=== PATIENT | male | born 1950 | race Caucasian/White ===

== ENCOUNTER 2016-09-02 07:05 | Day surgery (SDC) | payer MEDICARE, OTHER ==
[~2016-09-02] VITALS: Ht 185.4 cm; Wt 79.5 kg
[~2016-09-02 07:05] MED LIST: LACTATED RINGERS 1,000 ML IV SCH; SODIUM CHLORIDE FLUSH 3 ML SYR IV PRN
[2016-09-02 07:07] VITALS: BP 140/86
[2016-09-02] MEDS ORDERED: ALFENTANIL 500 MCG/ML (ALFENTA) 5 ML AMP IV ONE (07:52)
[2016-09-02] MEDS ORDERED: MIDAZOLAM 2 MG/2 ML (VERSED) VIAL ONE (07:52)
[2016-09-02] MEDS ORDERED: PROPOFOL 20 ML IV ONE (07:52)
[2016-09-02 09:08] VITALS: BP 121/76
[2016-09-02 09:34] VITALS: BP 140/87
== END 2016-09-02 09:38 | disposition home or self-care (01) ==
LOC: ASC 07:05
PROVIDERS: ATTEND Surgery
PROC: 0DBP8ZX Excision of Rectum, Via Natural or Artificial Opening Endoscopic, Diagnostic (ICD-10-PCS; principal; 2016-09-02)
PROC: 0DBN8ZX Excision of Sigmoid Colon, Via Natural or Artificial Opening Endoscopic, Diagnostic (ICD-10-PCS; 2016-09-02)
DX: Z12.11 Encounter for screening for malignant neoplasm of colon (principal); C20 Malignant neoplasm of rectum; D12.5 Benign neoplasm of sigmoid colon; K57.30 Diverticulosis of large intestine without perforation or abscess without bleeding; E66.9 Obesity, unspecified; Z68.37 Body mass index [BMI] 37.0-37.9, adult
CPT/HCPCS: 45385; 88305; J2250; J7120

== ENCOUNTER → 2016-09-29 | Outpatient (CLI) | payer MEDICARE, OTHER | LOC: LAB 08:57 | PROVIDERS: ATTEND Colon & Rectal Surgery | DX: Z85.048 Personal history of other malignant neoplasm of rectum, rectosigmoid junction, and anus (principal) | CPT/HCPCS: 36415; 82378; 82565; 84520 ==

== ENCOUNTER → 2016-09-30 | Outpatient (CLI) | payer MEDICARE, OTHER | LOC: RAD 07:56 | PROVIDERS: ATTEND Colon & Rectal Surgery | DX: Z85.048 Personal history of other malignant neoplasm of rectum, rectosigmoid junction, and anus (principal) | CPT/HCPCS: 71260; 74178; Q9967 ==

== ENCOUNTER → 2016-10-08 | Emergency (ER) | payer MEDICARE, OTHER ==
[~2016-10-08] VITALS: Ht 185.4 cm; Wt 81.0 kg
[~2016-10-08] MED LIST changes: -LACTATED RINGERS 1,000 ML IV SCH; +LIDOCAINE 4% TOPICAL 4.5 ML SYR ONE; +OXYMETAZOLINE 0.05% NASAL SPRAY (AFRIN) 15 ML BTL ONE; +SILVER NITRATE APPLICATOR 1 EA TOP ONE; -SODIUM CHLORIDE FLUSH 3 ML SYR IV PRN
--- NOTE | 2016-10-08 09:15 | NUR ---
Nose clamp applied by this nurse.
[2016-10-08 09:22] VITALS: BP 147/76
[2016-10-08 10:22] LABS: ALBUMIN 4.2 g/dL (3.4-5.0); ANION GAP 12.9 MEQ/L (3-15); TOTAL PROTEIN 7.3 g/dL (6.4-8.5)
[2016-10-08 10:29] LABS: BASOPHILS % (AUTO) 1 % (0-2); EOSINOPHILS # (AUTO) 0.1 10^3uL; EOSINOPHILS % (AUTO) 2 % (0-4); LYMPHOCYTES # (AUTO) 0.6 X10^3; MEAN CORPUSCULAR HGB CONC 32.6 g/dL (31.0-37.0); MEAN PLATELET VOLUME 10.3 FL (6.0-9.5); MONOCYTES # (AUTO) 0.5 X10^3; MONOCYTES % (AUTO) 13 % (3-11); NEUTROPHILS # (AUTO) 2.9 X10^3; NEUTROPHILS % (AUTO) 70 % (51-67); PLATELET COUNT 248 10^3uL (150-450); WHITE BLOOD COUNT 4.17 10^3uL (4.0-11.0)
--- NOTE | 2016-10-08 10:34 | NUR ---
NOTES FROM SUKHJINDER MURRAY RN: 0945: BP 124/71, P 78, O2SAT 98% RA, COOL CLOTH TO NECK AND DRY PAD TO NOSE, ALERT AND ORIENTED X3, PT HAS AN APPT IN [place] AT 1130 @ [facility]. 0952: AFRIN 2 PUFFS IN RT NOSTRIL, NO ACTIVE BLEEDING. 1000: RESTING, LAB HERE, BP 122/69, P 60, O2SAT 97% RA 1006: DR [place]EN[place] IN TO SEE PT, BP 139/80, P 73, O2SAT 97% RA
[2016-10-08 10:57] LABS: MEAN CORPUSCULAR HEMOGLOBIN 23.2 PG (26.0-34.0); MEAN CORPUSCULAR VOLUME 71 FL (80-100)
== END | disposition home or self-care (01) ==
LOC: ED 09:12
DX: R04.0 Epistaxis (principal); Z79.02 Long term (current) use of antithrombotics/antiplatelets
CPT/HCPCS: 36415; 80053; 85025; 85610; 99283; A9270; 99282